=== PATIENT | female | born 1975 | race American Indian/Alaskan Native ===

== ENCOUNTER 2017-09-08 05:57 | Day surgery (SDC) | payer MEDICAID ==
[2017-09-08] MEDS ORDERED: MVI, Adult with Vitamin K 10 ML, Thiamine 200 MG, Chromium/Copper/Mang/Selen/Zn 1 ML in... IV ONE ×4 (06:30)
[2017-09-08] MEDS ORDERED: fentaNYL 100 MCG/2 ML SDV ONE (06:33)
[2017-09-08] MEDS ORDERED: Propofol 200 MG/20 ML SDV ONE (06:33)
[2017-09-08] MEDS ORDERED: Midazolam 1 MG/ML 2 ML SDV ONE (06:33)
[2017-09-08] MEDS ORDERED: Glycopyrrolate 0.2 MG/ML 2 ML SDV IVPUSH ONE (07:15)
--- NOTE | 2017-09-19 10:30 | OR ---
DATE OF PROCEDURE: 09/08/2017 PREOPERATIVE DIAGNOSIS: Weight regain status post Ericka-en-Y gastric bypass. POSTOPERATIVE DIAGNOSIS: Weight regain status post Ericka-en-Y gastric bypass with enlargement of gastric pouch and erosion of silastic band into gastrojejunostomy with resultant marked dilation of gastrojejunostomy. OPERATIVE PROCEDURE: Upper GI endoscopy with biopsies of gastric pouch for CLOtest. ANESTHESIA: IV sedation. INDICATION FOR PROCEDURE: The patient is status post open Ericka-en-Y gastric bypass done by Dr. Armando Edge at, what is now, [facility] in 2004. She initially had a weight of 350 pounds at that time and then came down to 186 pounds. Over the last year and a half, she has had significant weight regain and presently has a weight of 257 pounds and height of 5 feet 5 inches giving her a BMI of 42.5. The plan is to proceed with an upper GI endoscopy with biopsies as indicated. Potential risks including bleeding and perforation were discussed, and the patient wishes to proceed. DETAILS OF PROCEDURE: The patient was taken to the operating room and placed in a left lateral decubitus position. IV sedation was administered, after which the upper GI endoscope was passed orally through the length of the esophagus and into the gastric pouch, and from there through the gastrojejunostomy, roughly 20 cm into the Ericka limb. Findings included normal hypopharynx, larynx, upper esophageal sphincter, and esophageal body. As one entered the area of the esophagogastric junction, that was per se normal. The pouch was noted to be quite strikingly enlarged, measuring around 10 to 11 cm, showing a striking increase in size. The patient also was noted to have a silastic band, which was used in many of Dr. Edge's cases, to try to restrict the gastrojejunostomy from enlarging. The band had eroded through the lumen and was now running more or less through the entire length of the lumen from anterior to posterior direction. Photodocumentation was obtained. This was associated with quite a bit in the way of inflammation around with ulcerations seen at the point where the erosion of the silastic band through the wall of the gastrojejunostomy was identified. The total diameter of the gastrojejunostomy at this point was also by definition increased quite a bit. Beyond the gastrojejunostomy, no additional abnormal findings were seen. Biopsies were then obtained from the gastric pouch to establish the patient's present H. pylori status. Minimal bleeding from the biopsy sites was seen and the procedure then concluded. The patient should be, at this point, considered for a revisional procedure. This would need to be done as an open approach due to her previous upper midline incision. The anatomy presently has an enlarged pouch as well as enlarged gastrojejunostomy, but more importantly, has a foreign body erosion through the gastrojejunostomy with resultant ulceration. The latter is at some point likely to cause some major complications and should probably be treated fairly urgently. A letter will be sent to the patient's insurance carrier for attempt at prior authorization for revision of the Ericka-en-Y gastric bypass along with removal of the eroded foreign body. Spencer Calzada MD /[id number]
== END 2017-09-08 09:15 | disposition home or self-care (01) ==
LOC: JP.SDS 05:57
PROVIDERS: ATTEND Surgery
DX: R63.5 Abnormal weight gain (principal); Z68.41 Body mass index [BMI] 40.0-44.9, adult; K95.09 Other complications of gastric band procedure; K25.9 Gastric ulcer, unspecified as acute or chronic, without hemorrhage or perforation; B96.81 Helicobacter pylori [H. pylori] as the cause of diseases classified elsewhere; Z98.84 Bariatric surgery status
CPT/HCPCS: 43239; 87081; J2250; J2704; J3010; J3411; J7120; J3490

== ENCOUNTER 2017-11-02 06:37 | Inpatient (IN) | payer MEDICAID ==
[2017-11-02] MEDS ORDERED: Scopolamine 1.5 MG Transdermal Patch TOP ONE (06:47)
[2017-11-02] MEDS ORDERED: Acetaminophen 500 MG Tab PO ONE (06:48)
[2017-11-02] MEDS ORDERED: Gabapentin 300 MG Cap PO ONE (06:48)
[2017-11-02] MEDS ORDERED: cefOXitin 2 GM in Sodium Chloride 0.9% 50 ML IV ONE ×2 (07:00→07:15)
[2017-11-02] MEDS ORDERED: Succinylcholine 200 MG/10 ML MDV ONE ×2 (07:07→11:26)
[2017-11-02] MEDS ORDERED: Propofol 200 MG/20 ML SDV ONE (07:07)
[2017-11-02] MEDS ORDERED: Dexamethasone 4 MG/ML SDV ONE (07:07)
[2017-11-02] MEDS ORDERED: Ondansetron 4 MG/2 ML SDV ONE (07:07)
[2017-11-02] MEDS ORDERED: Rocuronium 50 MG/5 ML Vial ONE (07:07)
[2017-11-02] MEDS ORDERED: Neostigmine Methylsulfate 1 MG/ML 5 ML Syringe ONE (07:07)
[2017-11-02] MEDS ORDERED: Glycopyrrolate 0.2 MG/ML 5 ML MDV ONE (07:07)
[2017-11-02] MEDS ORDERED: Celecoxib 200 MG Cap PO ONE (07:13)
[2017-11-02] MEDS ORDERED: HYDROmorphone/Normal Saline 15 MG/30 ML PCA IV PRN (07:31)
[2017-11-02] MEDS ORDERED: Naloxone 0.4 MG/ML SDV IV PRN (07:37)
[2017-11-02] MEDS ORDERED: Dextrose 5%-Lactated Ringers 1,000 ML IV SCH ×2 (08:00→13:45)
[2017-11-02] MEDS ORDERED: Ketamine 500 MG/5 ML MDV IV SCH (08:00)
[2017-11-02] MEDS ORDERED: Lidocaine 0.4%/D5W 2 GM/500 ML BAG IV SCH (08:00)
[2017-11-02] MEDS ORDERED: Lidocaine 2% 100 MG/5 ML Syringe IVPUSH ONE (08:00)
[2017-11-02] MEDS ORDERED: methylPREDNISolone Sodium Succinate 125 MG/2 ML SDV IV ONE (08:00)
[2017-11-02] MEDS ORDERED: Ropivacaine 56 ML, Dexamethasone 8 MG, EPINEPHrine 0.4 MG, Sodium Chloride 0.9% 21.6 ML NERVRT SCH ×4 (08:00)
[2017-11-02] MEDS ORDERED: Meropenem 500 MG SDV ONE (08:22)
[2017-11-02] MEDS ORDERED: fentaNYL 250 MCG/5 ML SDV ONE (10:40)
[2017-11-02] MEDS ORDERED: Lactated Ringers 1,000 ML ONE (10:40)
[2017-11-02] MEDS: Tranexamic Acid 1,000 MG in Sodium Chloride 0.9% 50 ML IV SCH ×2 (10:56→13:08)
[2017-11-02] MEDS ORDERED: Ondansetron 4 MG/2 ML SDV IVPUSH ONE (12:32)
[2017-11-02] MEDS: [UNRECOGNIZED DRUG - OTHER] TOP SCH (13:57)
[2017-11-02] MEDS ORDERED: diphenhydrAMINE 50 MG/ML SDV IVPUSH PRN (14:00)
[2017-11-02] MEDS ORDERED: Labetalol 20 MG/4 ML Syringe IVPUSH PRN (14:00)
[2017-11-02] MEDS ORDERED: hydrOXYzine HCl 100 MG/2 ML SDV IM PRN (14:00)
[2017-11-02] MEDS: cefOXitin 2 GM in Sodium Chloride 0.9% 50 ML IV SCH ×2 (15:08→21:18)
[2017-11-02] MEDS: Gabapentin 250 MG/5 ML Solution ML 470 ML Bottle PO SCH ×2 (15:08→21:19)
[2017-11-02] MEDS ORDERED: MVI, Adult with Vitamin K 10 ML, Thiamine 200 MG, Chromium/Copper/Mang/Selen/Zn 1 ML in... IV SCH ×4 (16:00)
[2017-11-02] MEDS ORDERED: Pantoprazole 40 MG Vial IVPUSH SCH (16:00)
[2017-11-02] MEDS: Acetaminophen Soln 650 MG/20.3 ML UD Cup PO SCH ×2 (16:43→21:19)
[2017-11-02] MEDS: Magnesium Sulfate/Water 2 GM in Premix Bag 1 BAG IV SCH ×2 (16:43→21:57)
[2017-11-02] MEDS: Heparin Sodium 5,000 Units/ML Vial SUBCUT SCH (18:29)
[2017-11-02] MEDS: Ondansetron 4 MG/2 ML SDV IVPUSH PRN (18:34)
[2017-11-02] MEDS: Metoclopramide 10 MG/2 ML SDV IVPUSH PRN (21:57)
[2017-11-03] MEDS: Ondansetron 4 MG/2 ML SDV IVPUSH PRN ×3 (02:54→14:36)
[2017-11-03] MEDS: cefOXitin 2 GM in Sodium Chloride 0.9% 50 ML IV SCH ×3 (02:54→15:55)
[2017-11-03] MEDS ORDERED: Iohexol 647 MG/ML 50 ML SDV PO STA (02:59)
[2017-11-03] MEDS: Magnesium Sulfate/Water 2 GM in Premix Bag 1 BAG IV SCH ×4 (03:07→21:01)
[2017-11-03] MEDS: Acetaminophen Soln 650 MG/20.3 ML UD Cup PO SCH ×5 (03:08→21:22)
[2017-11-03] MEDS: Heparin Sodium 5,000 Units/ML Vial SUBCUT SCH ×2 (05:18→18:14)
[2017-11-03] MEDS ORDERED: predniSONE 10 MG Tab PO ONE (08:00)
[2017-11-03] MEDS: SCOPOLAMINE PATCH CHECK TOP SCH (08:08)
[2017-11-03] MEDS: [UNRECOGNIZED DRUG - OTHER] TOP SCH (08:09)
[2017-11-03] MEDS: Gabapentin 250 MG/5 ML Solution ML 470 ML Bottle PO SCH ×3 (08:10→20:55)
[2017-11-03] MEDS: Celecoxib 200 MG Cap PO SCH (08:10)
[2017-11-03] MEDS: Hydroxychloroquine 200 MG Tab PO SCH (08:10)
--- NOTE | 2017-11-03 08:36 | CR ---
UGI wo KUB HISTORY: eval RY GBP FINDINGS: After administration of oral contrast, upright views were obtained. Post operative changes gastric bypass. Surgical drains in place. No evidence for leak. Contrast passes freely into proximal small bowel loops. IMPRESSION: No evidence for leak or obstruction.
[2017-11-03] MEDS: Sodium Ferric Gluconate Cmplex 250 MG in Sodium Chloride 0.9% 100 ML IV SCH (08:52)
[2017-11-03] MEDS: MVI, Adult with Vitamin K 10 ML, Thiamine 200 MG, Chromium/Copper/Mang/Selen/Zn 1 ML in... IV SCH ×4 (15:58)
[2017-11-03] MEDS: Pantoprazole 40 MG Delayed-Release Granules 1 Packet PO SCH (15:59)
[2017-11-03] MEDS ORDERED: Lactated Ringers 500 ML IV SCH (16:00)
[2017-11-04] MEDS: Dextrose 5%-Lactated Ringers 1,000 ML IV SCH ×2 (04:42→22:54)
[2017-11-04] MEDS: Magnesium Sulfate/Water 2 GM in Premix Bag 1 BAG IV SCH ×2 (04:48→09:00)
[2017-11-04] MEDS: Acetaminophen Soln 650 MG/20.3 ML UD Cup PO SCH ×3 (04:49→15:05)
[2017-11-04] MEDS: Heparin Sodium 5,000 Units/ML Vial SUBCUT SCH ×2 (06:21→17:06)
[2017-11-04] MEDS ORDERED: HYDROmorphone 2 MG Tab PO PRN (08:06)
[2017-11-04] MEDS: Celecoxib 200 MG Cap PO SCH (08:33)
[2017-11-04] MEDS: Bisacodyl 5 MG Tab PO SCH ×2 (08:34→20:06)
[2017-11-04] MEDS: Hydroxychloroquine 200 MG Tab PO SCH (08:39)
[2017-11-04] MEDS: SCOPOLAMINE PATCH CHECK TOP SCH (08:40)
[2017-11-04] MEDS: [UNRECOGNIZED DRUG - OTHER] TOP SCH (08:40)
[2017-11-04] MEDS: Gabapentin 250 MG/5 ML Solution ML 470 ML Bottle PO SCH ×3 (08:48→20:11)
[2017-11-04] MEDS ORDERED: predniSONE 5 MG Tab PO ONE (09:00)
[2017-11-04] MEDS ORDERED: Lactated Ringers 500 ML IV ONE (09:00)
[2017-11-04] MEDS ORDERED: Cyanocobalamin (Vitamin B12) 1,000 MCG/ML SDV IM ONE (09:00)
[2017-11-04] MEDS ORDERED: Tamsulosin 0.4 MG Cap.ER PO ONE (09:00)
[2017-11-04] MEDS: Sodium Ferric Gluconate Cmplex 250 MG in Sodium Chloride 0.9% 100 ML IV SCH (10:51)
--- NOTE | 2017-11-04 11:48 | PN ---
DATE OF SERVICE: 11/04/2017 The patient has been afebrile with stable vital signs. We will switch over to oral pain medication today. We will begin to continue weaning down the prednisone and give her some bowel stimulation. She may be ready for discharge home tomorrow. The patient did retain urine and has had generally some low urine output. Given this, we will leave the Ayala, begin some Flomax the IV rate running at around 100 mL an hour. I think we will give her one additional bolus of LR this morning as well and try getting the Ayala catheter out tomorrow in preparation for discharge. Spencer Calzada MD /[id number]
--- NOTE | 2017-11-04 11:57 | PN ---
DATE OF SERVICE: 11/03/2017 The patient has been afebrile with stable vital signs. The DAVID drain has slowed down quite a bit and appears to be stable. The upper GI x-ray looks good and will go up to a step-2 diet today and restart her prednisone and Plaquenil with the prednisone being a little bit higher, we will go for baseline dose today. Otherwise, maximize activity and work with pulmonary toilet. Spencer Calzada MD /[id number]
[2017-11-04] MEDS ORDERED: Furosemide 20 MG/2 ML VIAL IVPUSH ONE (12:30)
[2017-11-04] MEDS: Bacitracin Oint 28.35 GM Tube TOP PRN (12:31)
[2017-11-04] MEDS: Ondansetron 4 MG/2 ML SDV IVPUSH PRN (14:49)
[2017-11-04] MEDS: Pantoprazole 40 MG Delayed-Release Granules 1 Packet PO SCH (15:05)
[2017-11-04] MEDS: Metoclopramide 10 MG/2 ML SDV IVPUSH PRN (16:06)
[2017-11-04] MEDS: MVI, Adult with Vitamin K 10 ML, Thiamine 200 MG, Chromium/Copper/Mang/Selen/Zn 1 ML in... IV SCH ×4 (17:06)
[2017-11-04] MEDS: Acetaminophen/HYDROcodone 325-5 MG Tab PO PRN (20:06)
[2017-11-04] MEDS: Tamsulosin 0.4 MG Cap.ER PO SCH (20:07)
[2017-11-05] MEDS: Acetaminophen/HYDROcodone 325-5 MG Tab PO PRN ×3 (06:07→19:56)
[2017-11-05] MEDS: Heparin Sodium 5,000 Units/ML Vial SUBCUT SCH ×2 (06:08→17:47)
[2017-11-05] MEDS ORDERED: Scopolamine 1.5 MG Transdermal Patch TOP ONE (10:10)
[2017-11-05] MEDS: Metoclopramide 10 MG Tab PO SCH ×3 (10:12→21:38)
[2017-11-05] MEDS: Bacitracin Oint 28.35 GM Tube TOP PRN (10:15)
[2017-11-05] MEDS: [UNRECOGNIZED DRUG - OTHER] TOP SCH (10:16)
[2017-11-05] MEDS: Celecoxib 200 MG Cap PO SCH (10:16)
[2017-11-05] MEDS: Hydroxychloroquine 200 MG Tab PO SCH (10:17)
[2017-11-05] MEDS: predniSONE 1 MG Tab PO SCH (10:17)
[2017-11-05] MEDS: Dextrose 5%-Lactated Ringers 1,000 ML IV SCH (10:23)
[2017-11-05] MEDS: Gabapentin 250 MG/5 ML Solution ML 470 ML Bottle PO SCH ×3 (10:25→20:32)
[2017-11-05] MEDS: Pantoprazole 40 MG Delayed-Release Granules 1 Packet PO SCH (15:59)
[2017-11-05] MEDS: MVI, Adult with Vitamin K 10 ML, Thiamine 200 MG, Chromium/Copper/Mang/Selen/Zn 1 ML in... IV SCH ×4 (17:18)
[2017-11-05] MEDS: Tamsulosin 0.4 MG Cap.ER PO SCH (20:32)
[2017-11-06] MEDS: Acetaminophen/HYDROcodone 325-5 MG Tab PO PRN ×2 (02:29→07:52)
[2017-11-06] MEDS: Dextrose 5%-Lactated Ringers 1,000 ML IV SCH (03:47)
[2017-11-06] MEDS: Metoclopramide 10 MG Tab PO SCH ×2 (03:48→10:01)
[2017-11-06] MEDS: Heparin Sodium 5,000 Units/ML Vial SUBCUT SCH (05:27)
[2017-11-06] MEDS: Celecoxib 200 MG Cap PO SCH (09:59)
[2017-11-06] MEDS: Gabapentin 250 MG/5 ML Solution ML 470 ML Bottle PO SCH (09:59)
[2017-11-06] MEDS: [UNRECOGNIZED DRUG - OTHER] TOP SCH (09:59)
[2017-11-06] MEDS: predniSONE 1 MG Tab PO SCH (10:01)
[2017-11-06] MEDS: Hydroxychloroquine 200 MG Tab PO SCH (10:01)
--- NOTE | 2017-11-08 15:05 | DISCH ---
FINAL DIAGNOSES: 1. Weight regain with erosion of silastic band into gastrojejunostomy with intensity of the surrounding inflammatory reaction. 2. Incarcerated incisional hernia. 3. Marked adhesions of liver to inflammatory process around gastrojejunostomy. 4. Status gastrostomy. 5. Segment of devascularized small bowel at the site of revision of the jejunojejunostomy. 6. Rheumatoid arthritis. 7. Lumbar spine pathology. PROCEDURE: 1. Exploratory laparotomy with lysis of adhesions: a. Esophagogastrectomy with Ericka-en-Y esophagojejunostomy. b. Repair of incarcerated incisional hernia. c. Hepatorrhaphy. d. Small bowel resection. e. Takedown of gastrostomy. HOSPITAL COURSE: This is a 42-year-old status post Ericka-en-Y gastric bypass presenting with weight regain as well as ongoing epigastric pain. At the time of upper endoscopy, she was noted to have a wide open gastrojejunostomy and dilated pouch, but also had erosion of the silastic band gastric bypass into the lumen. The patient underwent exploratory laparotomy and the previous gastric pouch and gastrojejunostomy area were densely adherent to the liver and overall the entire area needed to be resected. The patient was reconstructed with esophagojejunostomy after the esophagogastrectomy had been completed. The Ericka limb was also then revised downward, so as to provide some more in the way of malabsorption, some of the small bowel in that area needed to be resected. The patient had previous gastrostomy which was taken down to facilitate ongoing procedure and repair of incarcerated incisional hernia was undertaken as well. Postoperatively, the patient had a little bit of nausea and overall is doing well. She will be sent home on step-2 diet. She will be continued on prednisone and Plaquenil on previous doses. Otherwise, she will get Celebrex 200 mg p.o. daily x1 month, [place] 5/325 one to two tabs q.4 hours p.r.n. pain, #40, and Reglan 10 mg p.o. q.6 hours p.r.n. nausea, #30. She will be followed with Jerilyn Ibrahim in [facility] this coming , 11/12/2017.
--- NOTE | 2017-11-10 08:32 | PN ---
DATE OF SERVICE: 11/05/2017 SUBJECTIVE: The patient has been afebrile with stable vital signs. Urine output has gradually picked up overnight and we will pull the Ayala catheter out today. We will make sure gets up to urinate. She will go home with the midline DAVID in place and likely home tomorrow. Spencer Calzada MD /[id number]
--- NOTE | 2017-11-10 09:24 | OR ---
DATE OF PROCEDURE: 11/02/2017 PREOPERATIVE DIAGNOSES: 1. Weight regain status post Ericka-en-Y gastric bypass with erosion of silastic band into gastrojejunostomy. 2. Incarcerated incisional hernia. POSTOPERATIVE DIAGNOSES: 1. Weight regain status post Ericka-en-Y gastric bypass with erosion of silastic band into gastrojejunostomy with severe surrounding inflammatory response. 2. Marked adherence of liver to inflammatory process adjacent to gastrojejunostomy. 3. Status gastrostomy. 4. Segment of devascularization of small bowel at the site of revision of jejunojejunostomy. 5. Incarcerated incisional hernia. OPERATIVE PROCEDURES: 1. Exploratory laparotomy with lysis of adhesions: a. Esophagogastrectomy with Ericka-en-Y esophagojejunostomy (29584). b. Repair of incarcerated incisional hernia (32206). c. Hepatorrhaphy (08195). d. Small bowel resection (71409). e. Takedown of gastrostomy (71238). f. Subtotal gastrectomy with Ericka-en-Y esophagojejunostomy (47132). ANESTHESIA: General. INDICATIONS FOR PROCEDURE: This is a 42-year-old presenting with some ongoing epigastric pain as well as significant weight regain, status post previous Ericka-en-Y gastric bypass done in [place]. Recent endoscopy showed an erosion of the silastic band into the lumen at the level of the gastrojejunostomy resulting in very large opening through the gastrojejunostomy as well as now with quite expanded pouch. Plan is to proceed with an open laparotomy with resection of the gastrojejunostomy and reconstruction by means of a Ericka-en- Y anastomosis. To facilitate weight gain, we will also plan to reduce the length of the common limb and increase the length of the biliopancreatic limb. Potential risks including bleeding, infection, leaks from various GI tract closures, problems with bowel obstruction over time as well as possibility of cardiopulmonary, septic, or hemorrhagic complications leading to were discussed, and the patient wishes to proceed. DETAILS OF PROCEDURE: The patient was taken to the operating room and placed in a supine position. After general endotracheal anesthesia was induced, bilateral transversus abdominis plane blocks were placed using ultrasound guidance. Ayala catheter was inserted and the abdomen was prepped and draped. The previously used upper midline incision was reused from the xiphoid down to the level of the umbilicus. Fairly extensive adhesions were then encountered as one entered the peritoneal cavity. These were eventually taken down initially past the area around the gastrojejunostomy. During the course of the initial dissection, the patient was noted to have a gastrostomy that had been placed at the original procedure. This was divided off the abdominal wall and then stapled away from the body of the stomach with a KWASI black load. Further dissection down then into the area of the gastrojejunostomy showed a quite striking inflammatory response with there being almost a lemon-sized area of dense inflammation. This was quite densely adherent to the posterior aspect of the left lobe of the liver. As this dissection came off, the bleeding from the liver needed to be controlled with several 2- 0 chromic liver stitches. Once the hepatorrhaphy was completed, further dissection revealed that it would not be safe to initially dissect at the level of the gastrojejunostomy with gastric pouch, but instead undergo a proximal resection line at the level of the distal esophagus. The distal esophagus was encircled and divided with the KWASI black loads. At that point, the Ericka limb was identified as I entered the gastrojejunostomy somewhat below the anastomosis and divided there. Careful dissection then potentially resulted in removal of the more proximal small bowel around the gastrojejunostomy and the gastric pouch and along with the distal esophagus. This was done with a combination of cautery and stapled dissection. The esophagogastrectomy specimen included the previous gastrojejunostomy and eroded silastic band were all then delivered from the field. At this point, the small bowel below the transverse colon was identified. Some adhesions were lysed. The small bowel was then dissected from the retrocolic tunnel back down below the colon and the Ericka limb at that point was measured to be at around 60 cm. At that point, we divided the Ericka limb as it entered the jejunojejunostomy. A portion of this became devascularized during the course of dissection. A roughly 10 cm segment was then removed by means of a KWASI stapler and the ileocecal valve was then identified and the small bowel was then traced back 350 cm from the ileocecal valve. This was potentially more distal from the original jejunojejunostomy and would give the patient a total alimentary length of around 400 cm, which should be satisfactory. At that point, the [id number] enteroenterostomy between the end of the Ericka limb and the bowel 350 cm proximal to the ileocecal valve was accomplished with sequential [id number] anastomotic sequence. The angles were anastomosed and mesenteric defects were approximated with some 3-0 Vicryl stitch along with fibrin sealant. The Ericka limb then easily came up to the level of the divided esophagus approximately. The anvil of a 25 mm EEA stapler was attached to [place] sump tube and brought down through the mouth and taken out through a small opening in the distal esophagus. The main body of the EEA stapler was then brought into the opening of the Ericka limb, brought up to the anvil and united with it, thus creating the esophagojejunostomy. Upon removal of the stapler, double donuts of mucosa were noted within it and the small bowel was closed off with a vascular staple line. The esophagojejunostomy was then reinforced with some 3-0 Vicryl seromuscular stitch along with fibrin sealant. The Ericka limb was then once again brought through a retrocolic approach and this was then fixed with some 3-0 Vicryl stitches to the transverse mesocolon as the Ericka limb passed through that area. During the course of the procedure, the patient was noted to have quite a bit in the way of persistent oozing from a variety of surfaces. Given this, tranexamic acid was given per Anesthesia and this appeared to promptly correct the problem with oozing. The patient will be receiving additional dose in the postoperative period. At that point, no further problems were noted in the abdomen. The patient had an incarcerated incisional hernia which contained some omentum. This was then dissected at the original point of entrance of the abdomen and some additional hernia sac was then removed. At this time, a single Jd- Reynoso drain was then taken through a stab wound in left subcostal area, and brought up against the esophagojejunostomy, and from there up into the splenic hilum. The midline fascia was approximated with #2 Vicryl stitch and this included repair of the incisional hernia. The subcutaneous tissue was drained with a 10-[place] round Jd-Reynoso drain, and then subcutaneous tissue approximated with 2 layers of 3-0 Vicryl stitch and the skin with richard. Drains were affixed with a 3-0 Vicryl stitch as well. The patient was taken to the recovery room in satisfactory condition. There were no evident complications. Spencer Calzada MD /[id number]
== END 2017-11-06 11:45 | disposition home or self-care (01) | DRG 327 ==
LOC: JP.MS 06:37 → JP.SDS 06:37 → EDSTATUS 08:45
PROVIDERS: ADMIT Surgery; ATTEND Surgery
PROC: 0D150ZA Bypass Esophagus to Jejunum, Open Approach (ICD-10-PCS; principal; 2017-11-02)
PROC: 0DB40ZZ Excision of Esophagogastric Junction, Open Approach (ICD-10-PCS; 2017-11-02)
PROC: 0WQF0ZZ Repair Abdominal Wall, Open Approach (ICD-10-PCS; 2017-11-02)
PROC: 0FQ20ZZ Repair Left Lobe Liver, Open Approach (ICD-10-PCS; 2017-11-02)
PROC: 0DB80ZX Excision of Small Intestine, Open Approach, Diagnostic (ICD-10-PCS; 2017-11-02)
PROC: 0DW60UZ Revision of Feeding Device in Stomach, Open Approach (ICD-10-PCS; 2017-11-02)
PROC: 0DB60ZZ Excision of Stomach, Open Approach (ICD-10-PCS; 2017-11-02)
PROC: 0DP60CZ Removal of Extraluminal Device from Stomach, Open Approach (ICD-10-PCS; 2017-11-02)
PROC: 3E0T3BZ Introduction of Anesthetic Agent into Peripheral Nerves and Plexi, Percutaneous Approach (ICD-10-PCS; 2017-11-02)
DX: K95.09 Other complications of gastric band procedure (principal); K43.0 Incisional hernia with obstruction, without gangrene; Z68.41 Body mass index [BMI] 40.0-44.9, adult; Y83.8 Other surgical procedures as the cause of abnormal reaction of the patient, or of later complication, without mention of misadventure at the time of the procedure; R63.5 Abnormal weight gain; K28.9 Gastrojejunal ulcer, unspecified as acute or chronic, without hemorrhage or perforation; K66.0 Peritoneal adhesions (postprocedural) (postinfection); M06.9 Rheumatoid arthritis, unspecified; Z79.899 Other long term (current) drug therapy; E66.9 Obesity, unspecified; Z98.84 Bariatric surgery status; Z98.0 Intestinal bypass and anastomosis status; Z93.1 Gastrostomy status
CPT/HCPCS: 36415; 51702; 74240; 74240-26; 80053; 82525; 82728; 83036; 83735; 83880; 84100; 84590; 84630; 85027; 94762; A9270-GY; C9113; J0171; J0330; J0694; J1100; J1170; J1644; J1940; J2001; J2185; J2405; J2704; J2710; J2765; J2795; J2916; J2930; J3010; J3411; J3420; J3475; J3490; J7030; J7042; J7050; J7120; Q9967